=== PATIENT | male | born 1990 | race American Indian/Alaskan Native ===

== ENCOUNTER 2020-07-14 07:41 | Emergency (ER) | payer SELFPAY ==
[2020-07-14] MEDS ORDERED: IBUPROFEN 800 MG TAB PO ONE (08:07)
[2020-07-14] MEDS ORDERED: levETIRAcetam 1000 MG/NS 0.75% 1,000 MG/100 ML BAG IV ONE (08:09)
--- NOTE | 2020-07-14 08:10 | Emergency Department Report ---
ED Seizure HPI - General Chief Complaint: Seizure Stated Complaint: SEIZURE Time Seen by Provider: 07/14/20 08:02 Source: patient Mode of arrival: Stretcher Limitations: No Limitations - History of Present Illness Initial Comments: 30-year-old male with history of seizure disorder presents to ED following seizure at home. Patient reportedly had a seizure while he was asleep in bed. Patient states he started having seizures approximately 6 months ago. Patient admits he is noncompliant with his Keppra. Patient has the medication at home, he just does not take it. States, "I take it every now and then." Patient states he had an appointment with the neurologist last week but he did not go. States he cannot remember why he did not go to the appointment, but "something came up." Patient only complaining of headache right now which he states is normal for him following a seizure. MD Complaint: seizure -: This morning Witnessed:: Yes Seizure History: known seizure disorder, history of non-compliance Place: home Associated Symptoms: denies: fever/chills Treatments Prior to Arrival: none - Related Data Allergies Allergy/AdvReac Type Severity Reaction Status Date / Time No Known Allergies Allergy Unverified 07/14/20 08:19 ED Review of Systems ROS: Stated complaint: SEIZURE Other details as noted in HPI Comment: All other systems reviewed and negative Constitutional: denies: chills, fever Neurological: headache. denies: weakness, numbness ED Past Medical Hx - Past Medical History Previous Medical History?: Yes Hx Seizures: Yes - Surgical History Past Surgical History?: No - Social History Smoking Status: Never Smoker Substance Use Type: Alcohol, Marijuana ED Physical Exam - General Limitations: No Limitations General appearance: alert, in no apparent distress - Head Head exam: Present: atraumatic, normocephalic - Eye Eye exam: Present: normal appearance, EOMI - ENT ENT exam: Present: mucous membranes moist - Neck Neck exam: Present: normal inspection - Respiratory Respiratory exam: Present: normal lung sounds bilaterally. Absent: respiratory distress - Cardiovascular Cardiovascular Exam: Present: regular rate, normal rhythm - GI/Abdominal GI/Abdominal exam: Present: soft. Absent: distended, tenderness - Extremities Exam Extremities exam: Present: normal inspection - Neurological Exam Neurological exam: Present: alert, oriented X3, CN II-XII intact. Absent: motor sensory deficit - Psychiatric Psychiatric exam: Present: normal affect, normal mood - Skin Skin exam: Present: warm, dry, intact, normal color ED Course Vital Signs 07/14/20 07/14/20 07:53 09:10 Temperature 97.9 F Respiratory 16 18 Rate ED Medical Decision Making - Lab Data Result diagrams: 07/14/20 08:47 07/14/20 08:47 - Medical Decision Making Patient feeling much better. No seizure activity here in the ED. Patient given 1 g of Keppra IV load. Labs unremarkable. Outpatient follow-up advised, return precautions given. Patient reports he does not need a prescription for his Keppra. Critical care attestation.: If time is entered above; I have spent that time in minutes in the direct care of this critically ill patient, excluding procedure time. ED Disposition Clinical Impression: Seizure Disposition: DC-01 TO HOME OR SELFCARE Is pt being admited?: No Condition: Stable Instructions: Seizure, Adult, [id number] Referrals: PRIMARY MD SHERRY [Primary Care Provider] - 3-5 Days THEODORE MARTINEZ MD [Referring] - 3-5 Days [facility] [Provider Group] - 3-5 Days Time of Disposition: 10:36
[2020-07-14] MEDS ORDERED: levETIRAcetam 1,000 MG in SODIUM CHLORIDE 0.9% 100 ML IV ONE (08:30)
[2020-07-14 09:19] LABS: Basophils % (Auto) 0.2 % (0.0-1.8); Eosinophils % (Auto) 0.5 % (0.0-4.3); Hematocrit 38.7 % (35.5-45.6); Hemoglobin 13.1 gm/dl (11.8-15.2); Lymphocytes # (Auto) 0.5 K/mm3 (1.2-5.4); Lymphocytes % (Auto) 10.1 % (13.4-35.0); Mean Corpuscular HGB Conc 34 % (32-34); Mean Corpuscular Volume 93 fl (84-94); Monocytes # (Auto) 0.4 K/mm3 (0.0-0.8); Monocytes % (Auto) 7.5 % (0.0-7.3); Platelet Count 194 K/mm3 (140-440); Red Blood Count 4.16 M/mm3 (3.65-5.03); Red Cell Distribution Width 15.9 % (13.2-15.2)
[2020-07-14 09:34] LABS: BUN/Creatinine Ratio 11; Blood Urea Nitrogen 10 mg/dL (9-20); Calcium 9.7 mg/dL (8.4-10.2); Hemolysis Index 3
[2020-07-14 11:07] VITALS: BP 115/71
[2020-07-14] MEDS ORDERED: traMADol 50 MG TAB PO ONE (11:15)
== END 2020-07-14 11:30 | disposition home or self-care (01) ==
LOC: ED 07:41
DX: G40.909 Epilepsy, unspecified, not intractable, without status epilepticus (principal); F12.10 Cannabis abuse, uncomplicated
CPT/HCPCS: 36415; 80048; 85025; 96374; 99284; J1953